=== PATIENT | female | born 1950 | race Caucasian/White ===

== ENCOUNTER 2018-12-17 06:27 | Day surgery (SDC) | payer MEDICARE ==
[~2018-12-17] VITALS: Ht 170.2 cm; Wt 85.0 kg
[2018-12-17 07:15] VITALS: BP 99/65
== END 2018-12-17 10:30 | disposition home or self-care (01) ==
LOC: OUT 06:27
PROVIDERS: ATTEND Specialist
DX: C78.7 Secondary malignant neoplasm of liver and intrahepatic bile duct (principal); C34.91 Malignant neoplasm of unspecified part of right bronchus or lung; I10 Essential (primary) hypertension; E11.9 Type 2 diabetes mellitus without complications; Z87.891 Personal history of nicotine dependence; Z88.0 Allergy status to penicillin; Z88.8 Allergy status to other drugs, medicaments and biological substances; Z91.040 Latex allergy status
CPT/HCPCS: 36415; 47000; 77012; 82962; 85610; 88307; 88341; 88342; 99156; 99157; J2250; J3010; J2310